=== PATIENT | female | born 1980 | race Caucasian/White ===

== ENCOUNTER 2016-04-21 00:18 | Emergency (ER) | payer SELFPAY ==
--- NOTE | 2016-04-21 00:38 | EDPHY ---
H & P Stated Complaint: tingl/numb hands-now feet,swelling feet, r flank, [facility] HPI/ROS: HPI CHIEF COMPLAINT: Multiple complaints HISTORY OF PRESENT ILLNESS: This patient very pleasant 35-year-old female denies taking any daily medications and no significant medical history, presents to the emergency room at 1:00 a.m. with multiple complaints. Patient tells me that for the past 2 months she has had tingling in her hands and feet, swelling in her ankles, muscle aches. Patient denies fever, denies productive cough, denies shortness of breath. She does tell me that today she had some discomfort in her chest is worse with truncal movements, also worse when you press on her left anterior chest wall. She denies trauma. She denies pleuritic pain, denies hemoptysis. Denies calf swelling. Denies history of DVT or PE, denies history of cardiac disease. No headache, no weakness. She states that the symptoms been going on for 2 months and that she was seen at [facility] for this and given a medication to help her with her muscle aches however it does not work she is unsure exactly what medication it is. She is due to follow up with [facility] this . Currently upon arrival in the emergency room she appears well nontoxic she complaining of muscle aches in her feet wrist ankles also complaining of numbness in her hands and feet. Also complaining of right flank pain. No urinary symptoms. Denies being . No abdominal pain. Past Medical History: No significant medical history Past Surgical History: , appendectomy, tubal ligation, foot surgery Social History: endorses smoking tobacco occasionally over a month, occasional alcohol use, denies illicit drug use Family History: noncontributory ROS REVIEW OF SYSTEMS: A comprehensive 10 point review of systems is otherwise negative aside from elements mentioned in the history of present illness. Exam Constitutional appears well nontoxic, slightly anxious, triage nursing summary reviewed, vital signs reviewed, awake/alert. Eyes normal conjunctivae and sclera, EOMI, PERRLA. HENT normal inspection, atraumatic, moist mucus membranes, no epistaxis, neck supple/ no meningismus, no raccoon eyes. Respiratory clear to auscultation bilaterally, normal breath sounds, no respiratory distress, no wheezing. Cardiovascular rate normal, regular rhythm, no murmur, no edema, distal pulses normal. Gastrointestinal soft, non-tender, no rebound, no guarding, normal bowel sounds, no distension, no pulsatile mass. Genitourinary no CVA tenderness. Musculoskeletal no evidence of swelling of the lower extremities specifically there is no tibial edema pretibial edema there is no ankle swelling, no midline vertebral tenderness, full range of motion, no calf swelling, no tenderness of extremities, no meningismus, good pulses, neurovascularly intact. Skin pink, warm, & dry, no rash, skin atraumatic. Neurologic awake, alert and oriented x 3, AAOx3, moves all 4 extremities equally, motor intact, sensory intact, CN II-XII intact, normal cerebellar, normal vision, normal speech. Psychiatric normal mood/affect. Heme/Lymph/Immune no lymphadenopathy. Differential Diagnosis: Includes but is not limited to in a particular order electrolyte abnormality, thyroid disease, urinary tract infection, , muscle spasms, acute anxiety, autoimmune disorder, vasculitis, rheumatological disorder Medical Decision Making: This patient had an IV established obtain blood work including electrolytes, thyroid, will check a troponin, D-dimer, she will have an EKG, chest x-ray, she be gently hydrated and received 0.5 mg IV Ativan to see if this improves her symptoms as she does appear anxious has tingling of her hands and feet. Unlikely to be acute coronary syndrome she has multiple complaints that we will try to evaluate help her with. Re-evaluation: ED x-ray chest one view: Negative for acute cardiopulmonary disease. Specifically cardiac silhouette normal in size, lung tao clear. Mediastinum narrow. Bony structures normal, soft tissue normal. No free air into the diaphragm. Trachea midline. Image interpreted by myself. CT scan of the abdomen pelvis without IV contrast for right-sided flank pain and hematuria. The results of the study are negative for anything acute except for constipation, no evidence of kidney stones, or hydroureter,. The study was read by Dr. Piña I viewed the images myself on the PACS system. 0310: Re-examination: Patient is resting comfortably she does complaints specifically she denies chest pain or shortness of breath, denies severe extremity pain. She in fact was sleeping comfortably here in the emergency room. Blood work, x-ray, CT scan, EKG and urinalysis all been reviewed there is minimal blood in her urine. Her CT scan did not show any evidence of kidney stone it does show constipation, her electrolytes are appropriate. Troponin negative, EKG negative, chest x-ray unremarkable. I feel comfortable with discharging her. She understands she needs to follow up with [facility] about her muscle cramps and possible peripheral neuropathy. I printed her blood work so she can take this to [facility]. Source: Patient - Personal History LMP (Females 10-55): Now Current Tetanus/Diphtheria Vaccine: Unsure - Medical/Surgical History Hx Asthma: No Hx Chronic Respiratory Disease: No Hx Diabetes: No Hx Cardiac Disease: No Hx Renal Disease: No Hx Cirrhosis: No Hx Alcoholism: No Hx HIV/AIDS: No Hx Splenectomy or Spleen Trauma: No Other PMH: . tubal ligation. appendectomy. left foot surg - Social History Smoking Status: Former smoker Constitutional: Initial Vital Signs Temperature (C) 36.9 C 04/21/16 00:22 Heart Rate 70 04/21/16 00:22 Respiratory Rate 18 04/21/16 00:22 Blood Pressure 122/74 H 04/21/16 00:22 O2 Sat (%) 96 04/21/16 00:22 O2 Delivery Mode Room Air Allergies/Adverse Reactions: No Known Allergies Allergy (Unverified 08/08/14 17:49) Home Medications: Medication Instructions Recorded Albuterol [Proventil Inhaler HFA 2 puffs IH Q4 PRN #1 mdi 08/09/13 (*)] AZITHROMYCIN 08/08/14 Hydrocodone/APAP 5/325 [[place] 1 - 2 tab PO Q4H PRN #15 tab 08/08/14 5/325 (*)] Medical Decision Making - Data Points Laboratory Results: Laboratory Results 04/21/16 01:10 04/21/16 01:10 04/21/16 04/21/16 04/21/16 01:10 01:10 01:10 WBC RBC Hgb Hct MCV MCH MCHC RDW Plt Count MPV Neut % (Auto) Lymph % (Auto) [place] % (Auto) Eos % (Auto) Baso % (Auto) Nucleat RBC Rel Count Absolute Neuts (auto) Absolute Lymphs (auto) Absolute Monos (auto) Absolute Eos (auto) Absolute Basos (auto) Absolute Nucleated RBC Immature Gran % Immature Gran # PT 12.6 SEC SEC (12.0-15.0) INR 0.95 (0.83-1.16) APTT 28.6 SEC SEC (23.0-38.0) D-Dimer 0.33 ug/mLFEU ug/mLFEU (0.00-0.50) Sodium 142 mEq/L mEq/L (134-144) Potassium 4.0 mEq/L mEq/L (3.5-5.2) Chloride 110 mEq/L mEq/L (97-110) Carbon Dioxide 23 mEq/l mEq/l (22-31) Anion Gap 9 mEq/L mEq/L (8-16) BUN 19 mg/dL mg/dL (7-23) Creatinine 0.7 mg/dL mg/dL (0.6-1.0) Estimated GFR > 60 Glucose 94 mg/dL mg/dL (70-100) Calcium 9.0 mg/dL mg/dL (8.5-10.4) Magnesium 2.3 mg/dL mg/dL (1.6-2.3) Total Bilirubin 0.5 mg/dL mg/dL (0.1-1.4) Conjugated Bilirubin 0.3 mg/dL mg/dL (0.0-0.5) Unconjugated Bilirubin 0.2 mg/dL mg/dL (0.0-1.1) AST 16 IU/L IU/L (14-46) ALT 25 IU/L IU/L (9-52) Alkaline Phosphatase 79 IU/L IU/L (38-126) Creatine Kinase 106 IU/L IU/L (0-156) CK-MB (CK-2) Fraction 1.86 ng/mL ng/mL (0-3.19) Troponin I < 0.012 ng/mL ng/mL (0-0.034) NT-Pro-B Natriuret Pep 34 pg/mL pg/mL (0-125) Total Protein 6.8 g/dL g/dL (6.3-8.2) Albumin 4.2 g/dL g/dL (3.5-5.0) Lipase 83.0 IU/L IU/L (23-300) TSH 3.450 uIU/mL uIU/mL (0.465-4.680) Beta HCG, Qual NEGATIVE Urine Color Urine Appearance Urine pH Ur Specific [place] Urine Protein Urine Ketones Urine Blood Urine Nitrate Urine Bilirubin Urine Urobilinogen Ur Leukocyte Esterase Urine RBC Urine WBC Ur Epithelial Cells Urine Bacteria Urine Mucus Ur Culture Indicated? Urine Glucose 04/21/16 04/21/16 01:10 01:00 WBC 8.37 10^3/uL 10^3/uL (3.80-9.50) RBC 4.26 10^6/uL 10^6/uL (4.18-5.33) Hgb 13.1 g/dL g/dL (12.6-16.3) Hct 39.3 % % (38.0-47.0) MCV 92.3 fL fL (81.5-99.8) MCH 30.8 pg pg (27.9-34.1) MCHC 33.3 g/dL g/dL (32.4-36.7) RDW 13.1 % % (11.5-15.2) Plt Count 319 10^3/uL 10^3/uL (150-400) MPV 10.7 fL fL (8.7-11.7) Neut % (Auto) 58.9 % % (39.3-74.2) Lymph % (Auto) 31.3 % % (15.0-45.0) [place] % (Auto) 7.9 % % (4.5-13.0) Eos % (Auto) 1.3 % % (0.6-7.6) Baso % (Auto) 0.2 % L % (0.3-1.7) Nucleat RBC Rel Count 0.0 % % (0.0-0.2) Absolute Neuts (auto) 4.93 10^3/uL 10^3/uL (1.70-6.50) Absolute Lymphs (auto) 2.62 10^3/uL 10^3/uL (1.00-3.00) Absolute Monos (auto) 0.66 10^3/uL 10^3/uL (0.30-0.80) Absolute Eos (auto) 0.11 10^3/uL 10^3/uL (0.03-0.40) Absolute Basos (auto) 0.02 10^3/uL 10^3/uL (0.02-0.10) Absolute Nucleated RBC 0.00 10^3/uL 10^3/uL (0-0.01) Immature Gran % 0.4 % % (0.0-1.1) Immature Gran # 0.03 10^3/uL 10^3/uL (0.00-0.10) PT INR APTT D-Dimer Sodium Potassium Chloride Carbon Dioxide Anion Gap BUN Creatinine Estimated GFR Glucose Calcium Magnesium Total Bilirubin Conjugated Bilirubin Unconjugated Bilirubin AST ALT Alkaline Phosphatase Creatine Kinase CK-MB (CK-2) Fraction Troponin I NT-Pro-B Natriuret Pep Total Protein Albumin Lipase TSH Beta HCG, Qual Urine Color PALE YELLOW Urine Appearance CLEAR Urine pH 6.0 (5.0-7.5) Ur Specific [place] 1.009 (1.002-1.030) Urine Protein NEGATIVE (NEGATIVE) Urine Ketones NEGATIVE (NEGATIVE) Urine Blood 2+ H (NEGATIVE) Urine Nitrate NEGATIVE (NEGATIVE) Urine Bilirubin NEGATIVE (NEGATIVE) Urine Urobilinogen NEGATIVE EU EU (0.2-1.0) Ur Leukocyte Esterase NEGATIVE (NEGATIVE) Urine RBC 3-5 /hpf H /hpf (0-3) Urine WBC 1-3 /hpf /hpf (0-3) Ur Epithelial Cells TRACE /lpf /lpf (NONE-1+) Urine Bacteria TRACE /hpf H /hpf (NONE SEEN) Urine Mucus TRACE /lpf /lpf (NONE-1+) Ur Culture Indicated? NOT INDICATED (NI) Urine Glucose NEGATIVE (NEGATIVE) Medications Given: Discontinued Medications Sodium Chloride (Ns) 1,000 mls @ 0 mls/hr IV ONCE ONE PRN Reason: Wide Open Stop: 04/21/16 00:51 Last Admin: 04/21/16 01:22 Dose: 1,000 mls Lorazepam (Ativan Injection) 0.5 mg IVP EDNOW ONE Stop: 04/21/16 00:53 Last Admin: 04/21/16 01:22 Dose: 0.5 mg Departure - Departure Disposition: Home, Routine, Self-Care Clinical Impression: Muscle cramps Condition: Good Instructions: Leg Cramps (ED), Muscle Cramp (ED), Peripheral Neuropathy (ED) Additional Instructions: 1. please stay well-hydrated. 2. Return to the emergency room if he develops any worsening symptoms questions or concerns. 3. I do recommend that he follow up with [facility]. Referrals: Anitha Carrera [Primary Care Provider] - As per Instructions [facility] [Outside] - As per Instructions
[2016-04-21] MEDS ORDERED: NS 1,000 ML IV ONE (00:50)
[2016-04-21] MEDS ORDERED: LORazepam 2 MG/ML INJ IVP ONE (00:52)
[2016-04-21 01:07] LABS: COLOR PALE YELLOW; LEUKOCYTE ESTERASE,URINE NEGATIVE (NEGATIVE); NITRITE,URINE NEGATIVE (NEGATIVE)
[2016-04-21 01:09] LABS: BACTERIA TRACE /hpf (NONE SEEN); MUCUS TRACE /lpf (NONE-1+)
[2016-04-21 01:19] LABS: % IMMATURE GRANULYOCYTES 0.4 % (0.0-1.1); ABSOLUTE IMMATURE GRANULOCYTES 0.03 10^3/uL (0.00-0.10); ADD DIFF? NO; ADD MORPH? NO; ADD SCAN? NO; ATYPICAL LYMPHOCYTE FLAG 20 (0-99); FRAGMENT RBC FLAG 0 (0-99); HEMATOCRIT 39.3 % (38.0-47.0); HEMOGLOBIN 13.1 g/dL (12.6-16.3); LEFT SHIFT FLG 0 (0-99); LIPEMIA HEMOLYSIS FLAG 80 (0-99); MEAN CELL HEMOGLOBIN 30.8 pg (27.9-34.1); MEAN CELL HEMOGLOBIN CONCENTR. 33.3 g/dL (32.4-36.7); MEAN CELL VOLUME 92.3 fL (81.5-99.8); MEAN PLATELET VOLUME 10.7 fL (8.7-11.7); PLATELET CLUMPS FLAG 30 (0-99); PLATELET COUNT 319 10^3/uL (150-400); RED BLOOD CELL COUNT 4.26 10^6/uL (4.18-5.33); RED CELL DISTRIBUTION WIDTH 13.1 % (11.5-15.2)
[2016-04-21 01:31] LABS: ALANINE AMINOTRANSFERASE 25 IU/L (9-52); ALBUMIN 4.2 g/dL (3.5-5.0); ALKALINE PHOSPHATASE 79 IU/L (38-126); ANION GAP 9 mEq/L (8-16); ASPARTATE AMINOTRANSFERASE 16 IU/L (14-46); BILIRUBIN,TOTAL 0.5 mg/dL (0.1-1.4); BILIRUBIN-CONJUGATED 0.3 mg/dL (0.0-0.5); BILIRUBIN-UNCONJUGATED 0.2 mg/dL (0.0-1.1); CARBON DIOXIDE 23 mEq/l (22-31); CHLORIDE 110 mEq/L (97-110); CREATININE 0.7 mg/dL (0.6-1.0); GLOMERULAR FILTRATION RATE > 60; GLUCOSE 94 mg/dL (70-100); MAGNESIUM 2.3 mg/dL (1.6-2.3); SODIUM 142 mEq/L (134-144); TOTAL PROTEIN 6.8 g/dL (6.3-8.2)
[2016-04-21 01:35] LABS: INR 0.95 (0.83-1.16); PROTIME(PATIENT) 12.6 SEC (12.0-15.0)
--- NOTE | 2016-04-21 01:35 | CPEKG ---
Heart Rate: 68 RR Interval: 882 P-R Interval: 164 QRSD Interval: 88 QT Interval: 408 QTC Interval: 434 P Blak[place]: 11 QRS Blakely: 17 T Wave Blak[place]: 7 EKG Severity - NORMAL ECG - EKG Impression: SINUS RHYTHM Electronically Signed By: Ever Salas 23-Apr-2016 15:10:37
[2016-04-21 01:36] LABS: APTT 28.6 SEC (23.0-38.0)
[2016-04-21 01:44] LABS: CREATINE KINASE-MB FRACTION 1.86 ng/mL (0-3.19); TROPONIN I < 0.012 ng/mL (0-0.034)
[2016-04-21 03:58] VITALS: BP 82/55; PULSE 65; RESP 20; TEMP 98.2; O2SAT 94
== END 2016-04-21 04:04 | disposition home or self-care (01) ==
DX: R25.2 Cramp and spasm (principal); Z87.891 Personal history of nicotine dependence
CPT/HCPCS: 96374

== ENCOUNTER → 2016-06-11 | Outpatient (CLI) | payer OTHER | LOC: FIMAGING 16:10 | DX: N63 Unspecified lump in breast (principal) ==

== ENCOUNTER 2017-05-07 19:24 | Emergency (ER) | payer OTHER ==
[2017-05-07 19:42] VITALS: TEMP 98.1
--- NOTE | 2017-05-07 19:44 | EDPHY ---
H & P Stated Complaint: BACK PAIN X1.5 WKS SINCE WORKING OUT IN GYM, FALL 3 YRS AGO- SIMILAR Source: Patient, Speech And Drama Teacher Exam Limitations: Language barrier (Azeri) - Personal History LMP (Females 10-55): 22-28 Days Ago - Medical/Surgical History Hx Asthma: No Hx Chronic Respiratory Disease: No Hx Diabetes: No Hx Cardiac Disease: No Hx Renal Disease: No Hx Cirrhosis: No Hx Alcoholism: No Hx HIV/AIDS: No Hx Splenectomy or Spleen Trauma: No Other PMH: . tubal ligation. appendectomy. left foot surg - Social History Smoking Status: Former smoker Time Seen by Provider: 05/07/17 19:44 HPI/ROS: HPI: This is a 36-year-old female who presents with Chief Complaint: BACK PAIN X1.5 WKS SINCE WORKING OUT IN GYM, FALL 3 YRS AGO- SIMILAR Location: Right lower back Quality: Aching, sharp pain Duration: 1 and half week Signs and Symptoms: No bleeding, no radiation, no numbness, no weakness, no tingling, no incontinence, + decreased range of motion, no swelling, + pain, no fever Timing: Worsening Severity: 09/19 Context: Patient reports that she had bilateral lumbar and thoracic back pain that started shortly after working out at the gym approximately 1 and half weeks ago. She went to see her primary care provider who thought it might be related to her kidney. No labs or imaging performed at that time. She denies any urinary symptoms/hematuria/fever. She reports that now she has primarily has right lower back pain with no radiation or weakness or tingling or numbness. Patient is ambulatory. She forms house work for a living. Notes that certain activities that a repetitive movements and extension and flexion activities worsen her pain. She had a fall 3 years ago and the pain now feels similar to that. Denies nausea/vomiting/amnesia. Patient reports some nausea but no vomiting. Modifying Factors: No [id number] medications tried Comment: ROS: see HPI Constitutional: No fever, no chills, no weight loss Eyes: No blurred vision Respiratory: No shortness of breath, no cough Cardiovascular: No chest pain Gastrointestinal: No nausea, no vomiting no diarrhea Genitourinary: No dysuria Extremities: No myalgias Neurologic: No weakness, no numbness Skin: No rashes Hematologic: No bruising, no bleeding MEDICAL/SURGICAL/SOCIAL HISTORY: Medical history: Generally healthy. Does not take any regular medications. Surgical history: , tubal ligation, appendectomy, left foot surg, bilateral tubal ligation Social history: Employed. . CONSTITUTIONAL: Well-appearing middle-aged female, awake and alert, no obvious distress HEENT: Atraumatic and normocephalic. NECK: supple, no midline tenderness, flexion 45 degrees, extension 45 degrees, right and left lateral flexion 45 degrees. No meningismus. Cardiovascular: Normal S1/S2, regular rate, regular rhythm, without murmur rub or gallop. PULMONARY/CHEST: Symmetrical and nontender. no crepitus. Clear to auscultation bilaterally. Good air movement. No accessory muscle usage. ABDOMEN: Soft, nondistended, nontender, no ecchymosis. PELVIC: no pain with rocking; bilateral hips flexion 125 degrees, extension 30 degrees, with no pain internal rotation and no pain external rotation. BACK: No midline tenderness, reproducible moderate lumbar L3-L5 paraspinous muscle tenderness; no paraspinous spasm, deep tendon reflexes 2/2, no pain with straight leg raise, No foot drop. Relatively good flexion, extension, bilateral lateral rotation. Achilles reflexes are equal bilaterally. Able to walk on heels and toes without difficulty. EXTREMITIES: 2/2 pulses, strength 5/5, DIP/PIP/MCP flexion/extension intact with good light touch sensation. no deformities, no clubbing, no cyanosis or edema. NEUROLOGICAL: no focal neuro deficits. GCS 15. Light touch sensation intact. SKIN: Warm and dry, no erythema. no rash. Good capillary refill. ([place]) Constitutional: Initial Vital Signs Temperature (C) 36.7 C 05/07/17 19:39 Heart Rate 75 05/07/17 19:39 Respiratory Rate 18 05/07/17 19:39 Blood Pressure 120/81 H 05/07/17 19:39 O2 Sat (%) 95 05/07/17 19:39 O2 Delivery Mode Room Air Allergies/Adverse Reactions: No Known Allergies Allergy (Unverified 08/08/14 17:49) Home Medications: Medication Instructions Recorded Albuterol [Proventil Inhaler HFA 2 puffs IH Q4 PRN #1 mdi 08/09/13 (*)] AZITHROMYCIN 08/08/14 Hydrocodone/APAP 5/325 [[place] 1 - 2 tab PO Q4H PRN #15 tab 08/08/14 5/325 (*)] Cyclobenzaprine [Flexeril 10 MG 10 mg PO TID PRN #12 tab 05/07/17 (*)] methylPREDNISolone [Medrol Dose 1 each PO AD #0 ea 05/07/17 Nelson] Medical Decision Making - Diagnostics Imaging Results: Imaging Impressions Abdomen/Pelvis CT 05/07/17 19:54 Impression: 1. Negative for nephrolithiasis or obstructive uropathy. 2. Minimal spinal degenerative changes are noted. 3. Uterine fibroid formation is suspected. 4. See above report for additional findings. Results called and discussed with Ashly Mccoy PAC on 05/07/2017 20:30 Attention: This CT examination is specifically designed to evaluate patients who are clinically suspected of having acute obstructive uropathy. This examination does not use radiographic contrast, and as such, provides only a limited evaluation of the abdomen, pelvis and retroperitoneum. If there is further clinical suspicion for pathological conditions other than obstructive uropathy, a complete CT evaluation of the abdomen and pelvis utilizing intravenous, oral, and rectal contrast should be considered. ED Course/Re-evaluation: Urinalysis, labs, CT abdomen and pelvis scan, IV fluids, IV medications ordered Vital signs reviewed and afebrile. Given 1 L normal saline, IV Toradol, IV Decadron Urinalysis shows 2+ blood, 3-5 RBC; no signs of infection 2020: Labs reviewed; H&H low normal, creatinine 0.6 2024: Called by radiologist who advised that CT abdomen and pelvis scan shows no nephrolithiasis/ureterolithiasis/hydronephrosis/significant lumbar degenerative disc disease. + mild disc space loss at L5-S1 No signs of neurovascular compromise/tenting of skin/compartment syndrome/ extremities and joints examined above and below area of concern and are neurovascularly intact/myositis/diskitis/epidural hematoma Reassessed patient who reports that pain is significantly improved. This patient was seen under the supervision of my secondary supervising physician. I evaluated care for this patient independently. Discussed this patient with Dr. Morejon who did not see the patient. (Ashly Mccoy) The patient was evaluated and managed by the physician surveyor instrument assistant. I have reviewed this chart and I agree with the findings and plan of care as documented , as indicated by my signature. I am the secondary supervising physician. ( Nadia Morejon) Differential Diagnosis: Back pain including but not limited to muscular pain, herniated disc, spine fracture, intra-abdominal causes and urinary tract infection. (Ashly Mccoy) - Data Points Laboratory Results: Laboratory Results 05/07/17 19:55 05/07/17 19:55 05/07/17 05/07/17 05/07/17 19:55 19:55 19:55 WBC RBC Hgb Hct MCV MCH MCHC RDW Plt Count MPV Neut % (Auto) Lymph % (Auto) [place] % (Auto) Eos % (Auto) Baso % (Auto) Nucleat RBC Rel Count Absolute Neuts (auto) Absolute Lymphs (auto) Absolute Monos (auto) Absolute Eos (auto) Absolute Basos (auto) Absolute Nucleated RBC Immature Gran % Immature Gran # Sodium 142 mEq/L mEq/L (135-145) Potassium 3.4 mEq/L L mEq/L (3.5-5.2) Chloride 103 mEq/L mEq/L (97-110) Carbon Dioxide 29 mEq/l mEq/l (22-31) Anion Gap 10 mEq/L mEq/L (8-16) BUN 13 mg/dL mg/dL (7-23) Creatinine 0.6 mg/dL mg/dL (0.6-1.0) Estimated GFR > 60 Glucose 79 mg/dL mg/dL (70-100) Calcium 9.2 mg/dL mg/dL (8.5-10.4) Beta HCG, Qual NEGATIVE Urine Color PALE YELLOW Urine Appearance CLEAR Urine pH 6.0 (5.0-7.5) Ur Specific [place] 1.010 (1.002-1.030) Urine Protein NEGATIVE (NEGATIVE) Urine Ketones NEGATIVE (NEGATIVE) Urine Blood 2+ H (NEGATIVE) Urine Nitrate NEGATIVE (NEGATIVE) Urine Bilirubin NEGATIVE (NEGATIVE) Urine Urobilinogen NEGATIVE EU EU (0.2-1.0) Ur Leukocyte Esterase NEGATIVE (NEGATIVE) Urine RBC 3-5 /hpf H /hpf (0-3) Urine WBC 1-3 /hpf /hpf (0-3) Ur Epithelial Cells 1+ /lpf /lpf (NONE-1+) Urine Bacteria TRACE /hpf H /hpf (NONE SEEN) Urine Glucose NEGATIVE (NEGATIVE) 05/07/17 19:55 WBC 8.96 10^3/uL 10^3/uL (3.80-9.50) RBC 4.23 10^6/uL 10^6/uL (4.18-5.33) Hgb 12.1 g/dL L g/dL (12.6-16.3) Hct 37.0 % L % (38.0-47.0) MCV 87.5 fL fL (81.5-99.8) MCH 28.6 pg pg (27.9-34.1) MCHC 32.7 g/dL g/dL (32.4-36.7) RDW 14.6 % % (11.5-15.2) Plt Count 351 10^3/uL 10^3/uL (150-400) MPV 10.2 fL fL (8.7-11.7) Neut % (Auto) 64.0 % % (39.3-74.2) Lymph % (Auto) 28.2 % % (15.0-45.0) [place] % (Auto) 6.4 % % (4.5-13.0) Eos % (Auto) 1.0 % % (0.6-7.6) Baso % (Auto) 0.2 % L % (0.3-1.7) Nucleat RBC Rel Count 0.0 % % (0.0-0.2) Absolute Neuts (auto) 5.73 10^3/uL 10^3/uL (1.70-6.50) Absolute Lymphs (auto) 2.53 10^3/uL 10^3/uL (1.00-3.00) Absolute Monos (auto) 0.57 10^3/uL 10^3/uL (0.30-0.80) Absolute Eos (auto) 0.09 10^3/uL 10^3/uL (0.03-0.40) Absolute Basos (auto) 0.02 10^3/uL 10^3/uL (0.02-0.10) Absolute Nucleated RBC 0.00 10^3/uL 10^3/uL (0-0.01) Immature Gran % 0.2 % % (0.0-1.1) Immature Gran # 0.02 10^3/uL 10^3/uL (0.00-0.10) Sodium Potassium Chloride Carbon Dioxide Anion Gap BUN Creatinine Estimated GFR Glucose Calcium Beta HCG, Qual Urine Color Urine Appearance Urine pH Ur Specific [place] Urine Protein Urine Ketones Urine Blood Urine Nitrate Urine Bilirubin Urine Urobilinogen Ur Leukocyte Esterase Urine RBC Urine WBC Ur Epithelial Cells Urine Bacteria Urine Glucose Medications Given: Discontinued Medications Dexamethasone (Decadron Injection) 8 mg IVP EDNOW ONE Stop: 05/07/17 19:55 Last Admin: 05/07/17 20:05 Dose: 8 mg Sodium Chloride (Ns) 1,000 mls @ 0 mls/hr IV ONCE ONE; Wide Open PRN Reason: Protocol Stop: 05/07/17 19:55 Last Admin: 05/07/17 20:04 Dose: 1,000 mls Ketorolac Tromethamine (Toradol) 30 mg IVP EDNOW ONE Stop: 05/07/17 19:55 Last Admin: 05/07/17 20:04 Dose: 30 mg Departure - Departure Disposition: Home, Routine, Self-Care Clinical Impression: Lumbar back sprain Qualifiers: Encounter type: initial encounter Qualified Code(s): S33.5XXA - Sprain of ligaments of lumbar spine, initial encounter Hematuria Qualifiers: Hematuria type: benign essential microscopic Qualified Code(s): R31.1 - Benign essential microscopic hematuria Condition: Good Instructions: Cyclobenzaprine (By mouth), Methylprednisolone (By mouth), Low Back Strain (ED), Hematuria (ED) Additional Instructions: CT abdomen and pelvis scan today shows no evidence of acute intra-abdominal process including no kidney stone. You do have mild disc space loss at L5-S1. You're pain appears to be consistent with a lumbar muscular back strain. Take Tylenol 650 mg every 4 hours and/or Ibuprofen 600 mg every 8 hours with food as needed for pain. Take Medrol Dosepak as directed until complete. Take Flexeril every 8 hr as needed for muscle spasms. Rest as much as possible, perform gentle back stretching exercises, no heavy lifting until symptoms have resolved. If symptoms continue to persist or worsen over the next 7-10 days; follow-up with PCP and/or Neurosurgery to discuss further intervention. Agree with follow-up with scrape gatherer for hematuria. Make sure to drink at least 8-10 glasses of water daily. Return to the ER immediately if you have new or worsening back pain, fevers/ chills, flu like symptoms, incontinence or inability to urinate or defecate, weakness, paralysis, or any other symptom that concerns you - La tomografia del abdomen y pelvis de hoy no muestra evidencia de un proceso les intra abdominal incluyendo piedras en el génesis. - Si tiene perdida leve de espacio en L5-S1. Thomas dolor parece ser consistente con ashlee tensin de espalda muscular lumbar. - Blum Tylenol 650 mg cada 4 horas o ibuprofeno 600 mg cada 8 horas con comida segn sea necesario para el dolor. - Blum Medrol Dosepak joleen le indicaron hasta terminarselo. - Blum Flexeril cada 8 horas segn sea necesario para espasmos musculares. - Descanse tanto joleen sea posible, zane estiramiento leve joleen ejercicio, no levantar cosas pesadas hasta que los sntomas se fisher resuelto. - Si los sntomas persisten o empeoran donavan los prximos 7-10 hutchinson; zane seguimiento con PCP o Neurociruga para comentar ms intervencin. - Zane seguimiento con el nefrlogo de hematuria. Asegrese de beber al menos 8- 10 vasos de agua diariamente. - Regrese a la gricel de emergencia si el dolor empeora, fiebre/escalofrios, sintomas de influencia, incontinencia o inhabilidad de horinar o evacuar, debilidad, paralisis, o cualquier sintoma que te preocupe. Referrals: PCP Theo In,Mati [Medical Doctor] - As per Instructions Zac Gupta MD [Medical Doctor] - As per Instructions Prescriptions: Cyclobenzaprine [Flexeril 10 MG (*)] 10 mg PO TID PRN #12 tab PRN Reason: Spasms methylPREDNISolone [Medrol Dose Nelson] 1 each PO AD #0 ea
[2017-05-07] MEDS ORDERED: DEXAMETHASONE 4 MG/ML VIAL IVP ONE (19:54)
[2017-05-07] MEDS ORDERED: NS 1,000 ML IV ONE (19:54)
[2017-05-07] MEDS ORDERED: KETOROLAC 30 MG/1 ML SDV IVP ONE (19:54)
[2017-05-07 20:06] LABS: PLATELET COUNT 351 10^3/uL (150-400)
[2017-05-07 20:11] VITALS: O2SAT 97
[2017-05-07 20:36] VITALS: BP 106/54; PULSE 76; RESP 16
== END 2017-05-07 20:58 | disposition home or self-care (01) ==
DX: S33.5XXA Sprain of ligaments of lumbar spine, initial encounter (principal); R31.1 Benign essential microscopic hematuria; E86.9 Volume depletion, unspecified; Z87.891 Personal history of nicotine dependence; X58.XXXA Exposure to other specified factors, initial encounter
CPT/HCPCS: 96374; J1100; J1885